=== PATIENT | female | born 1990 | race Caucasian/White ===

== ENCOUNTER 2020-02-21 15:30 | Outpatient (CLI) | payer OTHER, SELFPAY ==
[2016-08-16 22:44] VITALS: BMI 24.1
[2020-02-21 15:58] VITALS: BP 120/83; PULSE 83; TEMP 36.7
[2020-02-21 16:04] VITALS: BP 120/83; PULSE 83
[2020-02-21 16:13] VITALS: BMI 26.4
--- NOTE | 2020-02-23 09:00 | OB.TRI.NOTE ---
History of Present Illness Date of Service: 02/21/20 Was patient seen by the physician?: No Reason For Visit: NST Date of Service: 02/21/20 Final MIRTA: 05/08/20 Final MIRTA Source: US <20 weeks Gestational age: 29 Weeks and 2 Days History of Present Illness: 29-year-old female who was seen in the office on 02/21/2020 complaining of some contractions. She was found to be closed in the office. She was sent to labor and delivery for monitoring, NST and evaluation. She denied any vaginal bleeding or leaking of fluid. Allergies No Known Allergies Allergy (Verified 08/07/16 18:31) Physical Exam Vitals: Vital Signs Temp Pulse BP 98.1 F 83 120/83 H 02/21/20 15:58 02/21/20 16:04 02/21/20 16:04 NST - FHR Rate Baby A Baseline: 140 Variability:: Moderate Accelerations:: 10 x 10 Decelerations:: None NST Reactive:: Appropriate for gestational age, Non-Reactive FHR Category:: Category I Uterine Activity:: irritability - FHR Rate Baby B Baseline: 135 Variability:: Moderate Accelerations:: 10 x 10 Decelerations:: None NST Reactive:: Yes, Non-Reactive FHR Category:: Category I Uterine Activity:: irritability
== END 2020-02-21 17:15 | disposition home or self-care (01) ==
LOC: WPOUT 15:55 → WP 15:57
PROVIDERS: Referring Provider Obstetrics & Gynecology; Visit Provider Obstetrics & Gynecology
DX: O30.003 Twin pregnancy, unspecified number of placenta and unspecified number of amniotic sacs, third trimester (principal); Z3A.29 29 weeks gestation of pregnancy
CPT/HCPCS: 59025; 59050; 99218; G0378

== ENCOUNTER 2020-03-07 17:54 | Observation (INO) | payer OTHER, SELFPAY ==
[2020-03-07] VITALS (9 sets, daily range): BP systolic 117–144; BP diastolic 58–99; PULSE 68–93; TEMP 36.4–36.8; O2SAT 98; BMI 26.9
[2020-03-07] MEDS: Betamethasone/Betamethasone 30 MG/5 ML Vial 12 MG IM (15:21)
[2020-03-07 15:53] LABS: Hematocrit 34.5 % (37-47); Hemoglobin 11.7 g/dL (12.0-15.0); Mean Corp Hgb Conc 33.9 g/dL (32-36); Mean Corpuscular Hgb 31.4 pg (27.0-32.0); Mean Corpuscular Volume 92.5 fL (81-99); Mean Platelet Vol. 11.4 fl (6.2-12.0); Platelet Count 154 K/mm3 (150-450); RBC Distribution Width CV 12.9 % (11.6-14.6); RBC Distribution Width SD 43.1 fl (35.1-43.9); Red Blood Count 3.73 M/mm3 (4.2-5.4); White Blood Count 9.4 K/mm3 (4.4-11.0)
[2020-03-07 16:05] LABS: Protein, Urine (Random) 16.3 mg/dL (<11.9); Protein:Creat Ratio 291 mg/g CRE (0-200)
[2020-03-07 16:06] LABS: AST(SGOT) 23 U/L (15-37); Alanine Aminotransfer ALT/SGPT 13 U/L (13-56); Creatinine, Serum 0.55 mg/dL (0.55-1.02); EST Glomerular Filtration Rate 139 mL/min (>60); Est Glom Filt Rate - Afr Amer 168 mL/min (>60); Estimated Creatinine Clearance 135.81 ml/min; Uric Acid 4.2 mg/dL (2.6-6.0)
[2020-03-07 16:15] LABS: Prothrombin Time (Protime)PT. 13.1 SECONDS (11.7-14.9)
[2020-03-07 16:16] LABS: Partial Thromboplast Time 26.2 Seconds (24.1-36.2)
[2020-03-07] MEDS: Labetalol 100 MG Tablet PO ×2 (16:58→22:11)
--- NOTE | 2020-03-07 17:16 | PCM.HP.OB ---
History Date of Admission: 03/07/20 Final MIRTA: 05/08/20 Final MIRTA Source: US <20 weeks Gestational age: 31 Weeks and 1 Days History of this : This is a 29 year-old, = 2 para 0-1-0-1 presents at 31-1/7 weeks gestation with complaints of a mild headache and increased blood pressure today. She states she woke up this morning and just did not feel well and had emesis x1. She had had nausea and vomiting recently in the but she did earlier. Then she states she had a bright spot in her vision that lasted 45 minutes. She states she would have felt uncomfortable to drive during this time. She then had a mild headache in the back of her head that she rated as a 2-3 out of 10 when she was in the office. She denies any epigastric pain. She denies any vaginal bleeding or leaking of fluid. She is had good movements. Jeane has been complicated to date by history of a previous section and she has chorionic diamniotic twin gestation Medical history is significant for mild asthma, migraines with aura, allergic rhinitis, preeclampsia with a previous , history of depression Allergies No Known Allergies Allergy (Verified 03/07/20 15:18) Home Medications: Home Medications Albuterol Inhaler 1 puff PRN PRN 08/07/16 Aspirin [Aspirin, Baby] 81 mg PO DAILY@0800 02/21/20 Ferrous Sulfate [Iron] 325 mg PO DAILY 02/21/20 Vits [Prenatabs FA] 1 tab PO DAILY 02/21/20 Sertraline HCl [Zoloft] 50 mg PO DAILY 02/21/20 Smoking Status: Never smoker NST - FHR Rate Baby A Baseline: 135 Variability:: Moderate Accelerations:: 15 x 15 Decelerations:: None NST Reactive:: Yes FHR Category:: Category I Uterine Activity:: irritability - FHR Rate Baby B Baseline: 125 Variability:: Moderate Accelerations:: 15 x 15 Decelerations:: None NST Reactive:: Yes FHR Category:: Category I Uterine Activity:: irritability History Past Pregnancies: Past Pregnancies Delivery Date Name GA/ Weeks Outcome Route Wt Infant Sex Labor Length Anesthesia Delivery Location Provider FOB Expected Infant Delivery Method: Scheduled Section Review of Systems Constitutional: Denies: Anorexia, Chills, Fever Eyes: Reports: Blurred vision - earlier, not now. Denies: Double vision HEENT: Reports: Head Aches Cardiovascular: Reports: Chest Pain, Edema Respiratory: Denies: Cough, Shortness of Breath Gastrointestinal: Reports: Nausea, Vomiting. Denies: Diarrhea Genitourinary: Denies: Dysuria Skin: Denies: Rash Neurological: Denies: Blurred vision, Double vision, Change in Speech, Slurred speech Hematologic/ Lymphatic: Denies: Anemia, Easy Bruising, Easy Bleeding Physical Exam Vitals: Vital Signs Temp Pulse BP 97.6 F L 70 132/85 H 03/07/20 15:58 03/07/20 16:23 03/07/20 16:23 General: Alert, Cooperative, No apparent distress Cardiovascular: Regular rate Lungs: Normal air movement Abdomen: Soft, Non-Distended, Gravid, Appropriate for Gestational Age Extremities:: No edema - 1+, Deep tendon reflexes - 3+ Neurological: Cranial nerves II-XII grossly intact, Neuro grossly intact. Negative for: Slurred Speech Assessment/Plan All Active Problems Severe pre-eclampsia (Acute) Severe pre-eclampsia (Acute) This is a 29 year-old, @ 31 1/7 weeks w/ di/di twins, gest HTN, r/o preeclampsia Or without evidence of preeclampsia. Headache is mild. Will treat with Tylenol as needed. Observe overnight and repeat labs in the morning. Labetalol 100 mg p.o. twice daily and monitor closely. NST every shift. NSTs were both reactive today. 3 previous section, last ultrasound baby A was breech. If premature delivery is indicated would recommend repeat section. Will transfer to tertiary care center if able and delivery is indicted or likely. Betamethasone section in anticipation of possible delivery was given. Will repeat in 24 hours.
[2020-03-07] MEDS: Acetaminophen 500 MG Tablet 1000 MG PO (22:21)
[2020-03-08 02:44] VITALS: PULSE 81; O2SAT 98
[2020-03-08 02:45] VITALS: TEMP 36.4
[2020-03-08 02:46] VITALS: BP 113/62; PULSE 82
[2020-03-08 04:36] VITALS: BP 115/63; PULSE 107
[2020-03-08 04:48] LABS: Hematocrit 31.3 % (37-47); Hemoglobin 10.7 g/dL (12.0-15.0); Mean Corp Hgb Conc 34.2 g/dL (32-36); Mean Corpuscular Hgb 31.8 pg (27.0-32.0); Mean Corpuscular Volume 92.9 fL (81-99); Mean Platelet Vol. 10.9 fl (6.2-12.0); Platelet Count 143 K/mm3 (150-450); RBC Distribution Width CV 12.8 % (11.6-14.6); RBC Distribution Width SD 42.9 fl (35.1-43.9); Red Blood Count 3.37 M/mm3 (4.2-5.4); White Blood Count 8.8 K/mm3 (4.4-11.0)
[2020-03-08 04:56] LABS: International Normalized Ratio 1.1; Partial Thromboplast Time 25.3 Seconds (24.1-36.2); Prothrombin Time (Protime)PT. 13.7 SECONDS (11.7-14.9)
[2020-03-08 05:00] LABS: AST(SGOT) 19 U/L (15-37); Alanine Aminotransfer ALT/SGPT 14 U/L (13-56); Creatinine, Serum 0.55 mg/dL (0.55-1.02); EST Glomerular Filtration Rate 139 mL/min (>60); Est Glom Filt Rate - Afr Amer 168 mL/min (>60); Estimated Creatinine Clearance 135.81 ml/min; Uric Acid 4.4 mg/dL (2.6-6.0)
[2020-03-08 08:18] VITALS: BP 116/71; PULSE 82
[2020-03-08 08:19] VITALS: PULSE 88; TEMP 36.7; O2SAT 100
--- NOTE | 2020-03-08 08:59 | PCM.PN.OB ---
Subjective: Doing well per patient and nursing staff. Denies any chest pain, shortness of breath, vaginal bleeding, leakage of fluid or dysuria. No RUQ abdominal pain. Mild headache overnight rating 3/10, took Tylenol and resolved. Denies any scotoma. No complaints. - Physical Exam Vitals/I&O's: Vital Signs Temp Pulse BP Pulse Ox 98.1 F 88 116/71 100 03/08/20 08:19 03/08/20 08:19 03/08/20 08:18 03/08/20 08:19 Weight: 162 lb Body Mass Index (BMI) 26.9 General: Alert, Oriented x3, Cooperative HEENT: Atraumatic, Normocephalic Neck: Trachea Midline Lungs: Clear to auscultation, Normal air movement, No rhonchi, No wheeze Cardiovascular: Regular rate, Regular Rhythm, No murmurs Abdomen: Bowel Sounds Present, Gravid Extremities: No edema Neurological: Deep Tendon Reflexes 2+/4 and Symmetrical, - - No clonus Psych/Mental Status: Normal Affect, Appropriate Laboratory Results 03/07/20 15:35: WBC 9.4, RBC 3.73 L, Hgb 11.7 L, Hct 34.5 L, MCV 92.5, MCH 31.4, MCHC 33.9, RDW Std Deviation 43.1, RDW Coeff of Dana 12.9, Plt Count 154, MPV 11.4 03/07/20 15:35: PT 13.1, INR 1.0, APTT 26.2 03/07/20 15:35: Creatinine 0.55, Estim Creat Clear Calc 135.81, Est GFR (MDRD) Af Amer 168, Est GFR (MDRD) Non-Af 139, Uric Acid 4.2, AST 23, ALT 13 03/07/20 15:35: U Random Total Protein 16.3 H, Urine Creatinine 56.10, Protein/Creatinin Ratio 291 H 03/08/20 04:40: WBC 8.8, RBC 3.37 L, Hgb 10.7 L, Hct 31.3 L, MCV 92.9, MCH 31.8, MCHC 34.2, RDW Std Deviation 42.9, RDW Coeff of Dana 12.8, Plt Count 143 L, MPV 10.9 03/08/20 04:40: PT 13.7, INR 1.1, APTT 25.3 03/08/20 04:40: Creatinine 0.55, Estim Creat Clear Calc 135.81, Est GFR (MDRD) Af Amer 168, Est GFR (MDRD) Non-Af 139, Uric Acid 4.4, AST 19, ALT 14 Current Medications Labetalol HCl (Trandate) 100 mg PO BID CARMEN Last Admin: 03/07/20 22:11 Dose: 100 mg Documented by: Medical Necessity - Tobacco Use Smoking Status: Never smoker Assessment/Plan All Active Problems Severe pre-eclampsia (Acute) Severe pre-eclampsia (Acute) A:Gestational HTN P: 1) BP stable overnight, will continue Labetalol 100mg PO BID. 2) Labs normal. P/C ration 291, 24hr urine will be completed around 1500 today. 3) Second dose of Celestone around 1500 today 4) Follow up in office tomorrow. Reviewed ongoing surveillance. Preeclampsia signs reviewed and when to call. 5) At this time Gestational HTN pending 24 hr urine. 6) Discharge home
--- NOTE | 2020-03-08 09:05 | DCINST_ITS ---
You will use the following diet at home:: Regular Discharge Activity: Return to Normal Activity Weight Bearing Status: Full weight bearing Allergies/Adverse Reactions: Allergies No Known Allergies Allergy (Verified 03/07/20 15:18) Medications to take at Discharge Albuterol Inhaler 1 puff PRN PRN 08/07/16 Aspirin [Aspirin, Baby] 81 mg PO DAILY@0800 02/21/20 Ferrous Sulfate [Iron] 325 mg PO DAILY 02/21/20 Vits [Prenatabs FA] 1 tab PO DAILY 02/21/20 Sertraline HCl [Zoloft] 50 mg PO DAILY 02/21/20 Primary Care Physician: Care Physician,No Primary [Primary Care Provider] - Test Results: Test results from this visit will be discussed in further detail at your follow- up appointment, if applicable.
[2020-03-08 18:19] LABS: 24HR. Urine Creatinine 1.03 g/24 HR (0.70-1.90)
[2020-03-10 11:57] LABS: 24 Hour Urine Protein 241.4 mg/24HR (<150 MG/24HR); 24HR. UA Prot. Total Volume 2775 mL; Urine Protein (24 Hour) 8.7 mg/dL (<11.9)
== END 2020-03-08 09:37 | disposition home or self-care (01) ==
LOC: WPOUT 03-08 09:47 → WP 03-08 09:47
PROVIDERS: Admitting Provider Obstetrics & Gynecology; Referring Provider Obstetrics & Gynecology; Visit Provider Obstetrics & Gynecology
DX: O13.3 Gestational [pregnancy-induced] hypertension without significant proteinuria, third trimester (principal); Z3A.31 31 weeks gestation of pregnancy; O30.043 Twin pregnancy, dichorionic/diamniotic, third trimester; O34.219 Maternal care for unspecified type scar from previous cesarean delivery; O99.343 Other mental disorders complicating pregnancy, third trimester; F32.9 Major depressive disorder, single episode, unspecified; O26.893 Other specified pregnancy related conditions, third trimester; J45.909 Unspecified asthma, uncomplicated
CPT/HCPCS: 36415; 59050; 81050; 82565; 82570; 84156; 84450; 84460; 84550; 85027; 85610; 85730; 96372; 99218; G0378; J0702

== ENCOUNTER 2020-03-08 15:20 | Outpatient (CLI) | payer OTHER, SELFPAY ==
[2020-03-07 15:19] VITALS: BMI 26.9
[2020-03-08 15:37] VITALS: BMI 26.9
[2020-03-08] MEDS: Betamethasone/Betamethasone 30 MG/5 ML Vial 12 MG IM (15:55)
== END 2020-03-08 16:00 | disposition home or self-care (01) ==
LOC: WPOUT 15:28 → WP 15:29
PROVIDERS: Referring Provider Obstetrics & Gynecology; Visit Provider Obstetrics & Gynecology
DX: O13.3 Gestational [pregnancy-induced] hypertension without significant proteinuria, third trimester (principal); O30.043 Twin pregnancy, dichorionic/diamniotic, third trimester; O34.219 Maternal care for unspecified type scar from previous cesarean delivery; O99.343 Other mental disorders complicating pregnancy, third trimester; F32.9 Major depressive disorder, single episode, unspecified; O26.893 Other specified pregnancy related conditions, third trimester; J45.909 Unspecified asthma, uncomplicated; Z3A.31 31 weeks gestation of pregnancy
CPT/HCPCS: 96372; 99218; G0378; J0702

== ENCOUNTER 2020-03-31 12:10 | Inpatient (IN) | payer OTHER, SELFPAY ==
[2020-03-31] VITALS (75 sets, daily range): BP systolic 123–159; BP diastolic 68–106; PULSE 68–104; RESP 14–16; TEMP 36.2–37.3; O2SAT 90–100; BMI 27.3
[2020-03-31] MEDS: Betamethasone/Betamethasone 30 MG/5 ML Vial 12 MG IM (11:23)
[2020-03-31 11:42] LABS: Hemoglobin 12.2 g/dL (12.0-15.0); Mean Corp Hgb Conc 33.9 g/dL (32-36); Mean Corpuscular Hgb 31.4 pg (27.0-32.0); Mean Corpuscular Volume 92.5 fL (81-99); Mean Platelet Vol. 12.1 fl (6.2-12.0); Platelet Count 139 K/mm3 (150-450); RBC Distribution Width CV 12.6 % (11.6-14.6); RBC Distribution Width SD 42.6 fl (35.1-43.9); Red Blood Count 3.89 M/mm3 (4.2-5.4); White Blood Count 7.6 K/mm3 (4.4-11.0)
[2020-03-31 11:51] LABS: International Normalized Ratio 1.1; Prothrombin Time (Protime)PT. 13.2 SECONDS (11.7-14.9)
[2020-03-31 11:52] LABS: Partial Thromboplast Time 31.6 Seconds (24.1-36.2)
[2020-03-31 12:02] LABS: AST(SGOT) 21 U/L (15-37); Alanine Aminotransfer ALT/SGPT 14 U/L (13-56); Creatinine, Serum 0.77 mg/dL (0.55-1.02); EST Glomerular Filtration Rate 93 mL/min (>60); Est Glom Filt Rate - Afr Amer 113 mL/min (>60); Estimated Creatinine Clearance 100.92 ml/min; Uric Acid 5.5 mg/dL (2.6-6.0)
[2020-03-31 12:07] LABS: Protein, Urine (Random) 10.7 mg/dL (<11.9); Protein:Creat Ratio 393 mg/g CRE (0-200)
[2020-03-31] MEDS: Acetaminophen 500 MG Tablet 1000 MG PO ×2 (14:14→20:16)
[2020-03-31] MEDS: Lactated Ringers 1,000 ML 999 ML IV (14:58)
--- NOTE | 2020-03-31 15:43 | HP.PCM_ITS ---
History and Physical Date of Admission: 03/31/20 HPI: The patient is a 29 year old female presenting for pre-operative visit. She is scheduled for?, for?breech, 34 4/7 week twins, preeclampsia with severe features on?March 31, 2020. ??Procedure discussed along with risks, benefits and complications. ?Other alternatives discussed for management. Consent form signed??Yes.? PAST MEDICAL HISTORY PAST MEDICAL HISTORY Diagnosis Date ? Asthma ? ? Depression ? ? Infertility, female ? ? Migraine with aura ? ? depression ? ? Pre-eclampsia ? ? Seasonal allergies ? ? ? PAST SURGICAL HISTORY PAST SURGICAL HISTORY Procedure Laterality Date ? DELIVERY ONLY N/A 08/08/2016 ? ? CURRENT MEDICATIONS Current Outpatient Medications Medication Sig Dispense Refill ? ondansetron (ZOFRAN) 4 mg tablet Take 1 tablet by mouth every 8 hours as needed for Nausea/Vomiting. 30 tablet 0 ? famotidine (PEPCID) 20 mg tablet Take 1 tablet by mouth twice daily. 60 tablet 1 ? labetalol (TRANDATE) 100 mg tablet Take 100 mg by mouth twice daily. ? ? ? sertraline (ZOLOFT) 50 mg tablet TAKE ONE AND ONE-HALF TABLETS ONCE DAILY 45 tablet 11 ? aspirin, enteric coated (ECOTRIN LOW STRENGTH) 81 mg EC tablet Take 1 tablet by mouth once daily. ? ? ? Vmaqzsap-Jb-Cyd-Fe-FA ( VITAMIN) tab Take 1 tablet by mouth. ? ? ? albuterol HFA (VENTOLIN HFA) 90 mcg/actuation inhaler Inhale 2 Puffs as instructed every 4 hours as needed for Wheezing/Shortness of Breath. 1 Inhaler 2 ? budesonide-formoterol (SYMBICORT) 80-4.5 mcg/actuation inhaler Inhale 2 Puffs as instructed twice daily. 1 Inhaler 5 ? fluticasone (FLONASE) 50 mcg/actuation nasal spray Use 2 Sprays in each nostril once daily. 1 Bottle 11 ? No current facility-administered medications for this visit.? ? ALLERGIES:?Patient has no known allergies. ? PERSONAL HISTORY:? SOCIAL HISTORY Social History ? Tobacco Use ? Smoking status: Never Smoker ? Smokeless tobacco: Never Used Substance Use Topics ? Alcohol use: Not Currently ? ? Alcohol/week: 2.5 standard drinks ? ? Types: 1 Glasses of Wine (5oz) per week ? ? Comment: rarely ? Drug use: No ? FAMILY HISTORY:? FAMILY HISTORY FAMILY HISTORY Problem Relation Age of Onset ? Arthritis Mother ?RA ? Hypertension Father ? ? Thyroid Sister ? ? No Known Problems Maternal Grandmother ? ? Cancer Paternal Grandmother ?renal, brain ? No Known Problems Paternal Grandfather ? ? Asthma Sister ? ? No Known Problems Daughter ? ? REVIEW OF SYMPTOMS: GENERAL: denies fevers or chills ENDOCRINOLOGY: has not been on steroids Cardiology : denies palpitations or chest pain Respiratory: denies SOB or cough Hematology: denies history of prolonged bleeding or easy bruising or VTE Allergy: Denies history of personal or family history of allergy to anesthesia ? ? PHYSICAL EXAMINATION: ? VITALS:?Blood pressure 141/101, weight 163 lb (73.9 kg), last menstrual period 08/02/2019. ? GENERAL:??The patient is well nourished, well hydrated in no acute distress. ?, The patient is oriented to time, place, and person. Neuro- some nystagmus, otherwise growssly normal neuro exam NECK:?Supple. No lynphadenopathy, normal thyroid, no thyromegaly. LUNGS:?Clear to auscultation bilaterally. no wheezes, rhonchi or rales HEART:?Regular rate and rhythm, Normal heart sounds and No murmurs or gallops abd: soft, nontender, gravid, approp. for twin gestation ext- 4+DTRs, 3 beats of clonus ? IMPRESSION:?29-year-old 2 para 0101 at 34-4/7 weeks gestation with dichorionic diamniotic twin gestation, breech presentation of fetus A, and preeclampsia with severe features ? PLAN:???The risks/benefits/alternatives and personal involved for the planned?c- section?were reviewed with the patient. Her questions were answered to her satisfaction and she desires to proceed. ?Consent was signed. ?I reviewed with her postop instructions and expectations. ? ? I have reviewed and updated past medical and surgical history, medications and allergies?
[2020-03-31] MEDS: Sodium Citrate/Citric Acid 30 ML UDC PO (16:00)
[2020-03-31] MEDS: Lactated Ringers 1,000 ML 150 ML IV (16:00)
[2020-03-31] MEDS: Cefazolin 2 GM in 0.9% Normal Saline 100 ML IV (16:15)
--- NOTE | 2020-03-31 17:17 | OP.PCM_ITS ---
Delivery Classification: Scheduled Final MIRTA: 05/08/20 Final MIRTA Source: US <20 weeks Gestational age: 34 Weeks and 4 Days veterinary technologist: Pamela Wallace Type of Anesthesia:: Spinal Special Medications: duramorph Implants Used: none Date of Procedure: 03/31/20 Pre-Operative Diagnosis: Dichorionic diamniotic twin gestation, breech presentation of twin A and B, high risk multigravida, previous section, preeclampsia with severe features Post-Operative Diagnosis: Same Description of Procedure: The patient was taken to the operating room. She was prepped and draped in the dorsal supine position with a leftward tilt. A Pfannenstiel skin incision was made approximately 2 cm above the symphysis pubis and carried through to underlying layer fascia with the scalpel. Her previous scar was undermined and removed. The fascia was incised incised in the midline and extended laterally with the Cornejo scissors. The fascia was dissected off the rectus muscles with blunt and sharp dissection. The rectus muscles were in the midline and the peritoneum was entered bluntly. The peritoneal incision was stretched and the bladder blade was placed. The uterine incision was made in a low transverse fashion with the scalpel and extended superiorly and inferiorly with blunt dissection. The amniotic membranes were ruptured bluntly and lightly meconium amniotic fluid returned. Baby A was complete breech and the buttocks were brought out and the leg swept out. The baby was then brought out to the shoulders and the arms were swept out easily and the head delivered easily. There was a loose nuchal cord x1 and the head was delivered through this easily. The infant was stimulated, and after approximately 30 seconds the cord was clamped and cut. The was vigorous and handed off to the waiting nursing staff. At this point baby B was palpated and found to be footling breech. Both feet were grasped and the amniotic membranes were ruptured for clear fluid. The infant was brought out to the buttocks and turned back up. The remainder the baby delivered easily, and the shoulders were swept out and the head delivered very easily without any significant traction. There was a loose nuchal cord and the baby was delivered through this easily. Cord clamping was slightly delayed as the infant was stimulated the cord was clamped and cut as the was stimulated. Cord clamping was delayed. The was handed off to the waiting nursing staff. The placenta was delivered with fundal massage and gentle traction in the standard fashion. The uterus was exteriorized and cleared of all clots and debris. The cervix was dilated with a ring forcep. The uterine incision was closed with #1 Vicryl in a running locked fashion. A single [id number] suture was needed to the right of the midline to obtain hemostasis of a sinus. The incision was examined and was found to be hemostatic. The uterus was placed back into the peritoneal cavity and hemostasis was again confirmed. The rectus muscles were examined and any bleeding was Bovie cauterized. The parietal peritoneum and rectus muscles were closed en bloc with an 0 Vicryl running suture. The surgical teams outer gloves were then changed. The rectus fascia was examined and any bleeding was Bovie cauterized and the rectus fascia was closed with 1 Vicryl suture in a running standard fashion. The subcutaneous tissue was examining and any bleeding was Bovie cauterized. The subcutaneous tissue was reapproximated with 3-0 Vicryl suture. The skin was closed in a subcuticular fashion Monocryl suture. I performed the entire procedure with assistance. All sponge, lap, and needle counts were correct. The patient was taken to her room for recovery in a stable condition. Start time 1646 Stop time 171 Baby A delivery time 1650 baby B delivery time 1652 Amniotic Membrane Rupture Type: Artificial Amniotic Fluid Description: Lightly stained meconium Placenta Disposition: Sent to Pathology Drain: John to straight drain Fluids Replaced: 1000 ml LR Cord Entanglement: Around neck x 1, loose Nuchal Cord Compression: Without compression Cord Vessel Description: 3 Vessels Esitmated Blood Loss (ml): 800 ml Infant Gender: Female - Yi Delayed cord clamping: Yes Antibiotic Given: Ancef 2 grams IV x1 - Admit VTE Documentation VTE Present on Admission: No VTE Mechan Device Prophylaxis: SCD's VTE Pharm Prophylaxis ordered?: Yes Baby B - Information Amniotic Membrane Rupture Type: Artificial Presentation: Footling Breech - Operative Information Cord Entanglement: Around neck x 1, loose Cord Vessel Description: 3 Vessels B gender: Male - Giuliano
[2020-03-31] MEDS: Oxytocin 30 units/NS 500 ml 30 UNITS/500 ML IV.SOLN 167 UNITS IV (17:30)
[2020-03-31] MEDS: Magnesium Sulfate 4gm/100mL 4 GM/100 ML IV.SOLN. IV (17:40)
[2020-03-31] MEDS: Magnesium Sulfate 20 GM/500 ML BAG IV (18:01)
--- NOTE | 2020-03-31 19:54 | NURSING ---
Pt has indwelling urinary catheter
[2020-03-31] MEDS: Lactated Ringers 1,000 ML 50 ML IV (21:20)
--- NOTE | 2020-03-31 22:16 | NURSING ---
Pumping explained and initiated with Mother at 22:00. Mother educated to pump both breasts for 20 minutes every 3 hrs around the clock. Encouraged massage and hand expression as well. Mother hand expressed Colostrum onto swabs, and swabs labeled & taken to SCN
[2020-03-31] MEDS: Ketorolac 30 MG/ML Syringe IV (22:46)
[2020-03-31] MEDS: Labetalol 100 MG Tablet PO (22:46)
--- NOTE | 2020-03-31 22:50 | NURSING ---
Pt ambulating from bed to wheelchair to visit infants in special care nursery. Pt tolerated well. RN at bedside continuously at this time.
[2020-04-01] VITALS (34 sets, daily range): BP systolic 103–142; BP diastolic 57–86; PULSE 67–98; RESP 12–18; TEMP 36.2–37.1; O2SAT 95–100
[2020-04-01] MEDS: 0.9% Saline Lock 10 ML Syringe IV ×3 (00:59→16:59)
[2020-04-01] MEDS: Ondansetron 4 MG/2 ML Vial IV (00:59)
[2020-04-01] MEDS: Acetaminophen 500 MG Tablet 1000 MG PO ×4 (02:07→20:19)
[2020-04-01] MEDS: Magnesium Sulfate 20 GM/500 ML BAG IV ×2 (03:28→14:51)
[2020-04-01] MEDS: Lactated Ringers 1,000 ML 50 ML IV (03:28)
[2020-04-01] MEDS: Ketorolac 30 MG/ML Syringe IV ×3 (04:39→16:58)
[2020-04-01 04:57] LABS: Hematocrit 32.4 % (37-47); Hemoglobin 10.6 g/dL (12.0-15.0); Mean Corp Hgb Conc 32.7 g/dL (32-36); Mean Corpuscular Hgb 31.3 pg (27.0-32.0); Mean Corpuscular Volume 95.6 fL (81-99); Mean Platelet Vol. 11.7 fl (6.2-12.0); Platelet Count 133 K/mm3 (150-450); RBC Distribution Width CV 12.6 % (11.6-14.6); RBC Distribution Width SD 43.7 fl (35.1-43.9); Red Blood Count 3.39 M/mm3 (4.2-5.4)
[2020-04-01] MEDS: Enoxaparin 40 MG/0.4 ML Syringe SC ×2 (05:42→10:50)
[2020-04-01] MEDS: Labetalol 100 MG Tablet PO ×2 (10:49→21:43)
[2020-04-01] MEDS: Senna/Docusate Sodium 1 Tablet PO (10:49)
[2020-04-01] MEDS: Sertraline 50 MG Tablet PO (10:50)
--- NOTE | 2020-04-01 11:27 | PCM.PN.OB ---
Subjective: Patient seen in [facility]. Skin to skin with daughter. Denies any headaches, vision changes or epigastric pain. Ambulating and passing flatus. Pumping every 3 hours. Rates pain 08/09 - Physical Exam Vitals/I&O's: Vital Signs Temp Pulse Resp BP Pulse Ox 98.1 F 83 15 129/78 H 98 04/01/20 07:15 04/01/20 10:35 04/01/20 10:40 04/01/20 10:35 04/01/20 10:40 Oxygen Delivery Method Room Air Weight: 169 lb 2 oz Body Mass Index (BMI) 27.3 Intake and Output for Last 24 Hours 03/30/20 03/31/20 04/01/20 23:59 23:59 23:59 Intake Total 3210.84 / 3210.84 2457.65 / 2457.65 Output Total 2700 / 2700 3375 / 3375 Balance 510.84 / 510.84 -917.35 / -917.35 General: Alert, Oriented x3 HEENT: Atraumatic Lungs: Normal air movement Cardiovascular: Regular rate Abdomen: Soft, Non Tender, Passing Flatus Extremities: Capillary Refill Less than 3 Seconds, No Calf Tenderness Skin: No rashes Neurological: Cranial nerves II-XII grossly intact Psych/Mental Status: Normal Affect, Appropriate Laboratory Results 03/31/20 11:00: Blood Type O POSITIVE, Antibody Screen NEGATIVE 03/31/20 11:04: WBC 7.6, RBC 3.89 L, Hgb 12.2, Hct 36.0 L, MCV 92.5, MCH 31.4, MCHC 33.9, RDW Std Deviation 42.6, RDW Coeff of Dana 12.6, Plt Count 139 L, MPV 12.1 H 03/31/20 11:04: PT 13.2, INR 1.1, APTT 31.6 03/31/20 11:04: Creatinine 0.77, Estim Creat Clear Calc 100.92, Est GFR (MDRD) Af Amer 113, Est GFR (MDRD) Non-Af 93, Uric Acid 5.5, AST 21, ALT 14 03/31/20 11:04: U Random Total Protein 10.7, Urine Creatinine 27.20, Protein/Creatinin Ratio 393 H 04/01/20 04:45: WBC 12.0 H, RBC 3.39 L, Hgb 10.6 L, Hct 32.4 L, MCV 95.6, MCH 31.3, MCHC 32.7, RDW Std Deviation 43.7, RDW Coeff of Dana 12.6, Plt Count 133 L, MPV 11.7 Current Medications Acetaminophen (Tylenol) 1,000 mg PO Q6H COUNTS INCLUDE 234 BEDS AT THE [facility] Last Admin: 04/01/20 08:53 Dose: 1,000 mg Documented by: Bisacodyl (Dulcolax) 10 mg RECTAL UD PRN PRN Reason: If no BM Diphenhydramine HCl (Benadryl) 25 mg PO Q6H PRN PRN PRN Reason: ITCHING Stop: 04/01/20 17:39 Enoxaparin Sodium (Lovenox) 40 mg SC DAILY COUNTS INCLUDE 234 BEDS AT THE [facility] Last Admin: 04/01/20 10:50 Dose: 40 mg Documented by: Hydrocortisone (Hytone) 1 applic TOPICAL TID PRN PRN; Protocol PRN Reason: Discomfort Naloxone HCl 4 mg/ Dextrose 504 mls @ 0 mls/hr IV .Q0M PRN; Protocol PRN Reason: To maintain Resp. rate >10 Lactated Ringer's () 1,000 mls @ 100 mls/hr IV .Q10H COUNTS INCLUDE 234 BEDS AT THE [facility] Last Infusion: 04/01/20 06:43 Dose: 50 mls/hr Documented by: Magnesium Sulfate (20gm/500ml) 20 gm in 500 mls @ 50 mls/hr IV .Q10H COUNTS INCLUDE 234 BEDS AT THE [facility] Last Infusion: 04/01/20 10:35 Dose: 2 gm/hr, 50 mls/hr Documented by: Ketorolac Tromethamine (Toradol (Bkc)) 30 mg IV Q6H CARMEN Stop: 04/01/20 17:01 Last Admin: 04/01/20 10:50 Dose: 30 mg Documented by: Labetalol HCl (Trandate) 100 mg PO BID COUNTS INCLUDE 234 BEDS AT THE [facility] Last Admin: 04/01/20 10:49 Dose: 100 mg Documented by: Methylergonovine Maleate (Methergine) 0.2 mg IM X1 PRN PRN Reason: Uterine Atony Nalbuphine HCl (Nubain) 5 mg IV Q3H PRN PRN PRN Reason: ITCHING Stop: 04/01/20 17:39 Naloxone HCl (Narcan) 0.02 mg IV Q1M PRN PRN Reason: RR< 10 AND PT UNRESPONSIVE Naproxen (Naprosyn) 500 mg PO Q8H COUNTS INCLUDE 234 BEDS AT THE [facility] Ondansetron HCl (Zofran) 4 mg IV Q4H PRN PRN PRN Reason: Nausea Last Admin: 04/01/20 00:59 Dose: 4 mg Documented by: Oxycodone HCl (Oxyir) 5 - 10 mg PO Q4H PRN PRN PRN Reason: Pain Score 4-10/10 Prochlorperazine Edisylate (Compazine Iv) 10 mg IV Q6H PRN PRN PRN Reason: NAUSEA Senna/Docusate Sodium (Senokot-S, Barb-Colace) 0 tablet PO DAILY COUNTS INCLUDE 234 BEDS AT THE [facility] Last Admin: 04/01/20 10:49 Dose: 2 tablet Documented by: Sertraline HCl (Zoloft) 50 mg PO DAILY COUNTS INCLUDE 234 BEDS AT THE [facility] Last Admin: 04/01/20 10:50 Dose: 50 mg Documented by: Simethicone (Mylicon) 80 mg PO HS PRN PRN Reason: Indigestion/stomach pain Sodium Chloride () 5 - 15 ml IV UD PRN PRN Reason: SALINE FLUSH Last Admin: 04/01/20 04:39 Dose: 10 ml Documented by: Medical Necessity - Tobacco Use Smoking Status: Never smoker Assessment/Plan All Active Problems Severe pre-eclampsia (Acute) Severe pre-eclampsia (Acute) POD #1 Repeat C/S Di/Di twins Severe Preeclampsia- Magnesium sulfate running at 2 gm/hr- will continue for 24 hours post Pain control support Continue current plan of care Dr. Magdaleno notified and agrees
--- NOTE | 2020-04-01 18:10 | PN.OBGYN_ITS ---
Subjective: Pain well controlled. Average lochia. No N/V. Reports neonates are doing well in [facility] - Physical Exam Vitals/I&O's: Vital Signs Temp Pulse Resp BP Pulse Ox 98.4 F 76 15 123/77 H 100 04/01/20 16:30 04/01/20 16:53 04/01/20 16:40 04/01/20 16:53 04/01/20 16:40 Oxygen Delivery Method Room Air Weight: 76.714 kg Body Mass Index (BMI) 27.3 Intake and Output for Last 24 Hours 03/30/20 03/31/20 04/01/20 23:59 23:59 23:59 Intake Total 3210.84 / 3210.84 3290.15 / 3290.15 Output Total 2700 / 2700 4175 / 4175 Balance 510.84 / 510.84 -884.85 / -884.85 General: Alert, Cooperative, No apparent distress Laboratory Results 04/01/20 04:45: WBC 12.0 H, RBC 3.39 L, Hgb 10.6 L, Hct 32.4 L, MCV 95.6, MCH 31.3, MCHC 32.7, RDW Std Deviation 43.7, RDW Coeff of Dana 12.6, Plt Count 133 L, MPV 11.7 Current Medications Acetaminophen (Tylenol) 1,000 mg PO Q6H [facility] Last Admin: 04/01/20 14:50 Dose: 1,000 mg Documented by: Bisacodyl (Dulcolax) 10 mg RECTAL UD PRN PRN Reason: If no BM Enoxaparin Sodium (Lovenox) 40 mg SC DAILY [facility] Last Admin: 04/01/20 10:50 Dose: 40 mg Documented by: Hydrocortisone (Hytone) 1 applic TOPICAL TID PRN PRN; Protocol PRN Reason: Discomfort Naloxone HCl 4 mg/ Dextrose 504 mls @ 0 mls/hr IV .Q0M PRN; Protocol PRN Reason: To maintain Resp. rate >10 Lactated Ringer's () 1,000 mls @ 100 mls/hr IV .Q10H [facility] Last Admin: 04/01/20 17:24 Dose: Not Given Documented by: Magnesium Sulfate (20gm/500ml) 20 gm in 500 mls @ 50 mls/hr IV .Q10H [facility] Last Infusion: 04/01/20 16:30 Dose: Infused Documented by: Labetalol HCl (Trandate) 100 mg PO BID [facility] Last Admin: 04/01/20 10:49 Dose: 100 mg Documented by: Methylergonovine Maleate (Methergine) 0.2 mg IM X1 PRN PRN Reason: Uterine Atony Naloxone HCl (Narcan) 0.02 mg IV Q1M PRN PRN Reason: RR< 10 AND PT UNRESPONSIVE Naproxen (Naprosyn) 500 mg PO Q8H [facility] Ondansetron HCl (Zofran) 4 mg IV Q4H PRN PRN PRN Reason: Nausea Last Admin: 04/01/20 00:59 Dose: 4 mg Documented by: Oxycodone HCl (Oxyir) 5 - 10 mg PO Q4H PRN PRN PRN Reason: Pain Score 4-10/10 Prochlorperazine Edisylate (Compazine Iv) 10 mg IV Q6H PRN PRN PRN Reason: NAUSEA Senna/Docusate Sodium (Senokot-S, Barb-Colace) 0 tablet PO DAILY [facility] Last Admin: 04/01/20 10:49 Dose: 2 tablet Documented by: Sertraline HCl (Zoloft) 50 mg PO DAILY [facility] Last Admin: 04/01/20 10:50 Dose: 50 mg Documented by: Simethicone (Mylicon) 80 mg PO PCHS PRN PRN Reason: Indigestion/stomach pain Sodium Chloride () 5 - 15 ml IV UD PRN PRN Reason: SALINE FLUSH Last Admin: 04/01/20 16:59 Dose: 10 ml Documented by: Medical Necessity - Tobacco Use Smoking Status: Never smoker Assessment/Plan All Active Problems Severe pre-eclampsia (Acute) Severe pre-eclampsia (Acute) POD#1 s/p repeat c/s for preeclampsia w/ severe features doing well bp stable, consider hold labetalol tomorrow and see how BPs do infants in [facility], doing well overall
[2020-04-01] MEDS: Naproxen 250 MG Tablet 500 MG PO (23:36)
[2020-04-02] VITALS (10 sets, daily range): BP systolic 138–169; BP diastolic 83–107; PULSE 68–86; RESP 14–16; TEMP 36.2–36.8
[2020-04-02] MEDS: Acetaminophen 500 MG Tablet 1000 MG PO ×4 (02:08→22:01)
[2020-04-02] MEDS: Naproxen 250 MG Tablet 500 MG PO ×3 (06:58→22:51)
[2020-04-02] MEDS: Enoxaparin 40 MG/0.4 ML Syringe SC (10:46)
[2020-04-02] MEDS: Sertraline 50 MG Tablet PO (10:47)
[2020-04-02] MEDS: Senna/Docusate Sodium 1 Tablet PO (10:47)
[2020-04-02] MEDS: Labetalol 100 MG Tablet PO ×2 (10:47→13:49)
[2020-04-02] MEDS: 0.9% Saline Lock 10 ML Syringe IV ×2 (13:49→15:29)
[2020-04-02] MEDS: Ondansetron 4 MG/2 ML Vial IV (15:29)
[2020-04-02] MEDS: Labetalol 200 MG Tablet PO ×2 (17:12→22:02)
[2020-04-02 17:29] LABS: Hematocrit 33.5 % (37-47); Hemoglobin 10.6 g/dL (12.0-15.0); Mean Corp Hgb Conc 31.6 g/dL (32-36); Mean Corpuscular Hgb 30.6 pg (27.0-32.0); Mean Corpuscular Volume 96.8 fL (81-99); Mean Platelet Vol. 11.1 fl (6.2-12.0); Platelet Count 149 K/mm3 (150-450); RBC Distribution Width SD 45.7 fl (35.1-43.9); Red Blood Count 3.46 M/mm3 (4.2-5.4); White Blood Count 10.3 K/mm3 (4.4-11.0)
[2020-04-02 17:39] LABS: Prothrombin Time (Protime)PT. 12.4 SECONDS (11.7-14.9)
[2020-04-02 17:40] LABS: Partial Thromboplast Time 31.8 Seconds (24.1-36.2)
[2020-04-02 17:46] LABS: AST(SGOT) 28 U/L (15-37); Alanine Aminotransfer ALT/SGPT 16 U/L (13-56); Creatinine, Serum 0.74 mg/dL (0.55-1.02); EST Glomerular Filtration Rate 99 mL/min (>60); Est Glom Filt Rate - Afr Amer 120 mL/min (>60); Estimated Creatinine Clearance 105.01 ml/min; Uric Acid 4.5 mg/dL (2.6-6.0)
[2020-04-02 17:47] LABS: ALB/GLOB Ratio 0.6 RATIO (0.9-2.4); AST(SGOT) 28 U/L (15-37); Alanine Aminotransfer ALT/SGPT 16 U/L (13-56); Albumin, Serum 2.2 g/dL (3.2-5.0); Alkaline Phosphatase 172 U/L (45-117); Anion Gap 6 (5-15); BUN 13 mg/dL (7-18); BUN/Creat Ratio 17.5 RATIO (10-20); Calcium,Total 8.2 mg/dL (8.5-10.1); Chloride 111 mmol/L (98-107); Creatinine, Serum 0.74 mg/dL (0.55-1.02); EST Glomerular Filtration Rate 98 mL/min (>60); Est Glom Filt Rate - Afr Amer 118 mL/min (>60); Estimated Creatinine Clearance 105.01 ml/min; Globulin 3.5 g/dL (2.2-4.2); Glucose 81 mg/dL (74-106); Potassium 3.7 mmol/L (3.5-5.1); Protein, Total 5.7 g/dL (6.4-8.2); Sodium Level 143 mmol/L (136-145)
[2020-04-02] MEDS: Mag Hydrox/Al Hydrox/Simeth 30 ML UDC PO (19:01)
--- NOTE | 2020-04-02 19:14 | PN.OBGYN_ITS ---
Subjective: Patient seen at bedside. Denies any headaches, visual changes or right epigastric pain. Just feeling tired. Objective: BP's continue to be elevated at 150's/90's Preeclampsia labs within normal limits - Physical Exam Vitals/I&O's: Vital Signs Temp Pulse Resp BP Pulse Ox 98.2 F 72 16 150/94 H 100 04/02/20 13:55 04/02/20 15:30 04/02/20 15:30 04/02/20 18:27 04/01/20 16:40 Oxygen Delivery Method Room Air Weight: 169 lb 2 oz Body Mass Index (BMI) 27.3 Intake and Output for Last 24 Hours 03/31/20 04/01/20 04/02/20 23:59 23:59 23:59 Intake Total 3210.84 / 3210.84 3290.15 / 3290.15 Output Total 2700 / 2700 4175 / 4175 Balance 510.84 / 510.84 -884.85 / -884.85 General: Alert, Oriented x3 Lungs: Clear to auscultation, Normal air movement Cardiovascular: Regular rate Abdomen: Soft, Passing Flatus Extremities: No Calf Tenderness Neurological: Cranial nerves II-XII grossly intact, Deep Tendon Reflexes 2+/4 and Symmetrical - Reflexes brisk Psych/Mental Status: Normal Affect, Appropriate Laboratory Results 04/02/20 17:10: WBC 10.3, RBC 3.46 L, Hgb 10.6 L, Hct 33.5 L, MCV 96.8, MCH 30.6, MCHC 31.6 L, RDW Std Deviation 45.7 H, RDW Coeff of Dana 13.0, Plt Count 149 L, MPV 11.1 04/02/20 17:10: PT 12.4, INR 1.0, APTT 31.8 04/02/20 17:10: Creatinine 0.74, Estim Creat Clear Calc 105.01, Est GFR (MDRD) Af Amer 120, Est GFR (MDRD) Non-Af 99, Uric Acid 4.5, AST 28, ALT 16 04/02/20 17:10: Fibrinogen Pending 04/02/20 17:10: Sodium 143, Potassium 3.7, Chloride 111 H, Carbon Dioxide 26.0, Anion Gap 6, BUN 13, Creatinine 0.74, Estim Creat Clear Calc 105.01, Est GFR (MDRD) Af Amer 118, Est GFR (MDRD) Non-Af 98, BUN/Creatinine Ratio 17.5, Glucose 81, Calcium 8.2 L, Total Bilirubin 0.30, AST 28, ALT 16, Alkaline Phosphatase 172 H, Total Protein 5.7 L, Albumin 2.2 L, Globulin 3.5, Albumin/Globulin Ratio 0.6 L Current Medications Acetaminophen (Tylenol) 1,000 mg PO Q6H [facility] Al Hydroxide/Mg Hydroxide (Mylanta Ii) 30 ml PO Q6H PRN PRN PRN Reason: dyspepsia Last Admin: 04/02/20 19:01 Dose: 30 ml Documented by: Bisacodyl (Dulcolax) 10 mg RECTAL UD PRN PRN Reason: If no BM Enoxaparin Sodium (Lovenox) 40 mg SC DAILY [facility] Last Admin: 04/02/20 10:46 Dose: 40 mg Documented by: Hydrocortisone (Hytone) 1 applic TOPICAL TID PRN PRN; Protocol PRN Reason: Discomfort Naloxone HCl 4 mg/ Dextrose 504 mls @ 0 mls/hr IV .Q0M PRN; Protocol PRN Reason: To maintain Resp. rate >10 Labetalol HCl (Trandate) 200 mg PO TID [facility] Last Admin: 04/02/20 17:12 Dose: 200 mg Documented by: Methylergonovine Maleate (Methergine) 0.2 mg IM X1 PRN PRN Reason: Uterine Atony Naloxone HCl (Narcan) 0.02 mg IV Q1M PRN PRN Reason: RR< 10 AND PT UNRESPONSIVE Naproxen (Naprosyn) 500 mg PO Q8H [facility] Last Admin: 04/02/20 15:23 Dose: 500 mg Documented by: Ondansetron HCl (Zofran) 4 mg IV Q4H PRN PRN PRN Reason: Nausea Last Admin: 04/02/20 15:29 Dose: 4 mg Documented by: Oxycodone HCl (Oxyir) 5 - 10 mg PO Q4H PRN PRN PRN Reason: Pain Score 4-10/10 Prochlorperazine Edisylate (Compazine Iv) 10 mg IV Q6H PRN PRN PRN Reason: NAUSEA Senna/Docusate Sodium (Senokot-S, Barb-Colace) 0 tablet PO DAILY [facility] Last Admin: 04/02/20 10:47 Dose: 2 tablet Documented by: Sertraline HCl (Zoloft) 50 mg PO DAILY [facility] Last Admin: 04/02/20 10:47 Dose: 50 mg Documented by: Simethicone (Mylicon) 80 mg PO PCHS PRN PRN Reason: Indigestion/stomach pain Sodium Chloride () 5 - 15 ml IV UD PRN PRN Reason: SALINE FLUSH Last Admin: 04/02/20 15:29 Dose: 10 ml Documented by: Medical Necessity - Tobacco Use Smoking Status: Never smoker Assessment/Plan All Active Problems Severe pre-eclampsia (Acute) Severe pre-eclampsia (Acute) POD #2 Repeat C/S Di/Di twins- Preeclampsia Magnesium Sulfate continued for 24 hours after delivery Blood pressures remain elevated at 150's/90's Labetalol increased to 200 mg PO TID Preeclampsia labs drawn and are within normal range Continue present management Dr. Magdaleno notified and involved in plan of care
[2020-04-02 19:38] LABS: Fibrinogen 528 mg/dl (203-444)
[2020-04-03] VITALS (32 sets, daily range): BP systolic 118–182; BP diastolic 60–108; PULSE 60–90; RESP 16–62; TEMP 36.1–36.9; O2SAT 95
[2020-04-03] MEDS: Acetaminophen 500 MG Tablet 1000 MG PO ×2 (03:33→19:38)
[2020-04-03] MEDS: Naproxen 250 MG Tablet 500 MG PO ×2 (06:32→19:39)
[2020-04-03] MEDS: Labetalol 200 MG Tablet PO ×3 (06:32→22:21)
[2020-04-03] MEDS: 0.9% Saline Lock 10 ML Syringe IV ×5 (06:32→16:46)
[2020-04-03] MEDS: Ondansetron 4 MG/2 ML Vial IV ×2 (08:09→16:05)
[2020-04-03] MEDS: Enoxaparin 40 MG/0.4 ML Syringe SC (12:11)
--- NOTE | 2020-04-03 13:56 | PN.OBGYN_ITS ---
Subjective: Sitting up in bed eating lunch. Nausea throughout the morning but feeling better. Passing gas. Pain controlled. Denies headache, visual changes, chest pain, shortness or breath, or leg pain. Lochia normal. Pumping breastmilk every 3 hrs. Doing well emotionally with twins in special care nursery. - Physical Exam Vitals/I&O's: Vital Signs Temp Pulse Resp BP Pulse Ox 97.9 F 60 16 152/101 H 100 04/03/20 12:06 04/03/20 12:06 04/03/20 12:06 04/03/20 12:06 04/01/20 16:40 Oxygen Delivery Method Room Air Weight: 169 lb 2 oz Body Mass Index (BMI) 27.3 Intake and Output for Last 24 Hours 04/01/20 04/02/20 04/03/20 23:59 23:59 23:59 Intake Total 3290.15 / 3290.15 Output Total 4175 / 4175 Balance -884.85 / -884.85 General: Alert, Oriented x3, Cooperative HEENT: Atraumatic, Normocephalic Neck: Trachea Midline Lungs: Clear to auscultation, Normal air movement, No rhonchi, No wheeze Cardiovascular: Regular rate, Regular Rhythm, No murmurs Abdomen: Bowel Sounds Present, Soft - Fundus firm 3 below U. Dressing dry and intact. Extremities: No edema Neurological: Deep Tendon Reflexes 2+/4 and Symmetrical - No clonus. Toñito's negative bilaterally Psych/Mental Status: Normal Affect, Appropriate Laboratory Results 04/02/20 17:10: WBC 10.3, RBC 3.46 L, Hgb 10.6 L, Hct 33.5 L, MCV 96.8, MCH 30.6, MCHC 31.6 L, RDW Std Deviation 45.7 H, RDW Coeff of Dana 13.0, Plt Count 149 L, MPV 11.1 04/02/20 17:10: PT 12.4, INR 1.0, APTT 31.8 04/02/20 17:10: Creatinine 0.74, Estim Creat Clear Calc 105.01, Est GFR (MDRD) Af Amer 120, Est GFR (MDRD) Non-Af 99, Uric Acid 4.5, AST 28, ALT 16 04/02/20 17:10: Fibrinogen 528 H 04/02/20 17:10: Sodium 143, Potassium 3.7, Chloride 111 H, Carbon Dioxide 26.0, Anion Gap 6, BUN 13, Creatinine 0.74, Estim Creat Clear Calc 105.01, Est GFR (MDRD) Af Amer 118, Est GFR (MDRD) Non-Af 98, BUN/Creatinine Ratio 17.5, Glucose 81, Calcium 8.2 L, Total Bilirubin 0.30, AST 28, ALT 16, Alkaline Phosphatase 172 H, Total Protein 5.7 L, Albumin 2.2 L, Globulin 3.5, Albumin/Globulin Ratio 0.6 L Current Medications Acetaminophen (Tylenol) 1,000 mg PO Q6H [facility] Last Admin: 04/03/20 11:30 Dose: Not Given Documented by: Al Hydroxide/Mg Hydroxide (Mylanta Ii) 30 ml PO Q6H PRN PRN PRN Reason: dyspepsia Last Admin: 04/02/20 19:01 Dose: 30 ml Documented by: Bisacodyl (Dulcolax) 10 mg RECTAL UD PRN PRN Reason: If no BM Enoxaparin Sodium (Lovenox) 40 mg SC DAILY [facility] Last Admin: 04/03/20 12:11 Dose: 40 mg Documented by: Hydrocortisone (Hytone) 1 applic TOPICAL TID PRN PRN; Protocol PRN Reason: Discomfort Naloxone HCl 4 mg/ Dextrose 504 mls @ 0 mls/hr IV .Q0M PRN; Protocol PRN Reason: To maintain Resp. rate >10 Labetalol HCl (Trandate) 200 mg PO TID [facility] Last Admin: 04/03/20 06:32 Dose: 200 mg Documented by: Methylergonovine Maleate (Methergine) 0.2 mg IM X1 PRN PRN Reason: Uterine Atony Naloxone HCl (Narcan) 0.02 mg IV Q1M PRN PRN Reason: RR< 10 AND PT UNRESPONSIVE Naproxen (Naprosyn) 500 mg PO Q8H [facility] Last Admin: 04/03/20 06:32 Dose: 500 mg Documented by: Nifedipine (Procardia Xl) 30 mg PO DAILY [facility] Ondansetron HCl (Zofran) 4 mg IV Q4H PRN PRN PRN Reason: Nausea Last Admin: 04/03/20 08:09 Dose: 4 mg Documented by: Oxycodone HCl (Oxyir) 5 - 10 mg PO Q4H PRN PRN PRN Reason: Pain Score 4-10/10 Prochlorperazine Edisylate (Compazine Iv) 10 mg IV Q6H PRN PRN PRN Reason: NAUSEA Senna/Docusate Sodium (Senokot-S, Barb-Colace) 0 tablet PO DAILY [facility] Last Admin: 04/03/20 11:31 Dose: Not Given Documented by: Sertraline HCl (Zoloft) 50 mg PO DAILY [facility] Last Admin: 04/03/20 11:31 Dose: Not Given Documented by: Simethicone (Mylicon) 80 mg PO PCHS PRN PRN Reason: Indigestion/stomach pain Sodium Chloride () 5 - 15 ml IV UD PRN PRN Reason: SALINE FLUSH Last Admin: 04/03/20 08:08 Dose: 10 ml Documented by: Medical Necessity - Tobacco Use Smoking Status: Never smoker Assessment/Plan All Active Problems Severe pre-eclampsia (Acute) Severe pre-eclampsia (Acute) A:POD #3 Primary Section for Di/Di Twins Severe Preeclampsia P: Blood pressures remain elevated, will get repeat blood pressure as trending up. Labetalol increased to 200 mg PO TID previously. Will notify of BP and discuss plan. Continue present management Planning D/C to hotel status tomorrow if BP stable Twins in special car nursery
[2020-04-03] MEDS: NIFEdipine 30 MG Tablet PO (14:01)
[2020-04-03] MEDS: Labetalol (Prefilled) 20 MG/4 ML IV (15:29)
[2020-04-03] MEDS: Labetalol (Prefilled) 20 MG/4 ML 40 MG IV (15:38)
[2020-04-03] MEDS: Scopolamine 1mg/72hr Patch 1 PATCH TD (15:44)
[2020-04-03] MEDS: Labetalol 100 MG/20 ML Vial 80 MG IV (16:05)
[2020-04-03] MEDS: proCHLORPERazine 10 MG/2 ML Vial IV (16:46)
[2020-04-03 16:55] LABS: Absolute Lymphocyte Count 1.81 X10^3/uL (0.83-4.51); Absolute Neutrophil Count 8.9 X10^3/uL (2.0-7.7); Basophil# 0.05 X10^3/uL; Basophil% 0.4 % (0-1); Eosinophil# 0.41 X10^3/uL; Eosinophils% 3.4 % (0-5); Hematocrit 36.8 % (37-47); Lymphocyte # 1.81 X10^3/ul (4.0); Lymphocyte % 14.8 % (19-41); Mean Corp Hgb Conc 32.6 g/dL (32-36); Mean Corpuscular Hgb 30.3 pg (27.0-32.0); Mean Corpuscular Volume 92.9 fL (81-99); Mean Platelet Vol. 10.6 fl (6.2-12.0); Monocyte% 7.4 % (0-10); NRBC Flagged by Analyzer 0 % (0-5); Neutrophil # 8.89 X10^3/uL (2.7-7.7); Neutrophil % 72.9 % (47-70); Platelet Count 194 K/mm3 (150-450); RBC Distribution Width CV 12.6 % (11.6-14.6); RBC Distribution Width SD 43.3 fl (35.1-43.9); Red Blood Count 3.96 M/mm3 (4.2-5.4); White Blood Count 12.2 K/mm3 (4.4-11.0)
[2020-04-03] MEDS: NIFEdipine 10 MG Capsule PO (17:07)
[2020-04-03 17:36] LABS: ALB/GLOB Ratio 0.6 RATIO (0.9-2.4); AST(SGOT) 46 U/L (15-37); Alanine Aminotransfer ALT/SGPT 27 U/L (13-56); Albumin, Serum 2.5 g/dL (3.2-5.0); Alkaline Phosphatase 179 U/L (45-117); Anion Gap 6 (5-15); BUN 10 mg/dL (7-18); BUN/Creat Ratio 14.5 RATIO (10-20); Chloride 106 mmol/L (98-107); Creatinine, Serum 0.69 mg/dL (0.55-1.02); EST Glomerular Filtration Rate 107 mL/min (>60); Est Glom Filt Rate - Afr Amer 129 mL/min (>60); Estimated Creatinine Clearance 112.62 ml/min; Globulin 4.1 g/dL (2.2-4.2); Glucose 77 mg/dL (74-106); Potassium 3.9 mmol/L (3.5-5.1); Protein, Total 6.6 g/dL (6.4-8.2); Sodium Level 139 mmol/L (136-145)
--- NOTE | 2020-04-03 18:03 | PCM.PN.BLA ---
Progress Note At bedside to check on patient. Patient is doing well. Nausea and vomiting has somewhat improved after scopolamine patch was placed. She had a headache several hours ago that has since improved. No vision changes. She has had persistent epigastric pain. She is otherwise doing well and has no complaints. PE: Gen- NAD, well appearing Abd- Soft, ND, +tenderness in epigastric area and RUQ LE- No edema, brisk reflexes A/P: - POD#3 s/p C/S for twins and preeclampsia with severe features. Patient was on Labetalol 200 mg TID with severe range BP's. Procardia 30 mg XR was added, but due to N/V pt did not tolerate the Procardia or second dose of Labetalol today. After she took both the Procardia and Labetalol she had an episode of emesis, followed by persistent severe range BP's. The hypertensive protocol was started. She was given 20 mg, then 40 mg, then 80 mg of IV Labetalol. She was then given 10 mg of PO Procardia. BP's are now normal to mild range. If persistent mild, will give Procardia 30 mg XR followed by scheduled Labetalol tonight. Repeat labs were drawn for epigastric pain and AST was minimally elevated. Ordered for repeat labs in AM. Discussed plan of care with patient and questions answered. STROKE Vital Signs/Narrative: Vital Signs Pulse Resp BP BP 04/03/20 17:42 90 129/81 H 04/03/20 17:30 67 150/98 H 04/03/20 17:03 60 168/60 H 04/03/20 16:55 61 150/101 H 04/03/20 16:45 63 162/99 H 04/03/20 16:35 67 158/104 H 04/03/20 16:25 78 161/107 H 04/03/20 16:15 71 151/105 H 04/03/20 15:56 182/104 H 04/03/20 15:36 64 179/108 H 04/03/20 15:22 62 H 169/101 H 04/03/20 15:07 167/100 H 169/103 H 04/03/20 14:35 154/93 H
[2020-04-03] MEDS: Sertraline 50 MG Tablet PO (19:39)
--- NOTE | 2020-04-03 20:56 | NURSING ---
Call placed to Dr. Paez to update on patient's blood pressures. Plan is to continue current plan of care and give Labetalol as ordered and call if there's any severe range blood pressures. Per Dr. Paez, Procardia may be started in the morning depending on how that patient's blood pressures are throughout the night.
--- NOTE | 2020-04-03 22:04 | NURSING ---
Call placed to Dr. Paez to confirm Labetalol order as previous order was discontinued on MAR. 200 mg TID PO per Dr. Paez, telephone order.
[2020-04-04] VITALS (10 sets, daily range): BP systolic 122–146; BP diastolic 65–96; PULSE 64–85; RESP 16–18; TEMP 36.6–37; O2SAT 95
[2020-04-04] MEDS: 0.9% Saline Lock 10 ML Syringe IV ×4 (02:04→21:34)
[2020-04-04] MEDS: Naproxen 250 MG Tablet 500 MG PO ×3 (04:17→21:29)
[2020-04-04] MEDS: Acetaminophen 500 MG Tablet 1000 MG PO ×4 (04:18→21:29)
[2020-04-04] MEDS: Ondansetron 4 MG/2 ML Vial IV ×2 (04:23→18:35)
[2020-04-04] MEDS: Labetalol 200 MG Tablet PO ×3 (06:00→21:35)
[2020-04-04 06:17] LABS: Hematocrit 37.3 % (37-47); Hemoglobin 11.9 g/dL (12.0-15.0); Mean Corp Hgb Conc 31.9 g/dL (32-36); Mean Corpuscular Hgb 30.7 pg (27.0-32.0); Mean Corpuscular Volume 96.4 fL (81-99); Mean Platelet Vol. 10.8 fl (6.2-12.0); Platelet Count 210 K/mm3 (150-450); RBC Distribution Width CV 12.6 % (11.6-14.6); RBC Distribution Width SD 44.2 fl (35.1-43.9); Red Blood Count 3.87 M/mm3 (4.2-5.4); White Blood Count 11.7 K/mm3 (4.4-11.0)
[2020-04-04 06:46] LABS: ALB/GLOB Ratio 0.6 RATIO (0.9-2.4); AST(SGOT) 50 U/L (15-37); Alanine Aminotransfer ALT/SGPT 35 U/L (13-56); Albumin, Serum 2.5 g/dL (3.2-5.0); Alkaline Phosphatase 169 U/L (45-117); Anion Gap 8 (5-15); BUN 14 mg/dL (7-18); Calcium,Total 8.6 mg/dL (8.5-10.1); Chloride 104 mmol/L (98-107); Creatinine, Serum 0.88 mg/dL (0.55-1.02); EST Glomerular Filtration Rate 81 mL/min (>60); Est Glom Filt Rate - Afr Amer 98 mL/min (>60); Glucose 145 mg/dL (74-106); Potassium 3.6 mmol/L (3.5-5.1); Protein, Total 6.5 g/dL (6.4-8.2); Sodium Level 137 mmol/L (136-145)
--- NOTE | 2020-04-04 08:07 | PCM.PN.OB ---
Subjective: pt seen at bedside, doing well. pt reports good pain control. lochia mild. Voiding and passing flatus. Pt denies VIVAS, visual changes, epigastric pain. - Physical Exam Vitals/I&O's: Vital Signs Temp Pulse Resp BP Pulse Ox 98.6 F 83 16 139/90 H 95 04/04/20 07:59 04/04/20 07:59 04/04/20 07:59 04/04/20 07:59 04/04/20 07:59 Oxygen Delivery Method Room Air Weight: 76.714 kg Body Mass Index (BMI) 27.3 Intake and Output for Last 24 Hours 04/02/20 04/03/20 04/04/20 23:59 23:59 23:59 Output Total 300 / 300 Balance -300 / -300 General: Alert, Oriented x3 Abdomen: Soft, Non-Distended, Passing Flatus, - - no RUQ pain. Fundus firm. Dressing dry and intact. Extremities: No Calf Tenderness Laboratory Results 04/03/20 16:35: WBC 12.2 H, RBC 3.96 L, Hgb 12.0, Hct 36.8 L, MCV 92.9, MCH 30.3, MCHC 32.6, RDW Std Deviation 43.3, RDW Coeff of Dana 12.6, Plt Count 194, MPV 10.6, Immature Gran % (Auto) 1.100 H, Neut % (Auto) 72.9 H, Lymph % (Auto) 14.8 L, [place] % (Auto) 7.4, Eos % (Auto) 3.4, Baso % (Auto) 0.4, Absolute Neuts (auto) 8.9 H, Absolute Lymphs (auto) 1.81, Nucleated RBC % 0 04/03/20 16:35: Sodium 139, Potassium 3.9, Chloride 106, Carbon Dioxide 27.0, Anion Gap 6, BUN 10, Creatinine 0.69, Estim Creat Clear Calc 112.62, Est GFR (MDRD) Af Amer 129, Est GFR (MDRD) Non-Af 107, BUN/Creatinine Ratio 14.5, Glucose 77, Calcium 9.0, Total Bilirubin 0.40, AST 46 H, ALT 27, Alkaline Phosphatase 179 H, Total Protein 6.6, Albumin 2.5 L, Globulin 4.1, Albumin/Globulin Ratio 0.6 L 04/04/20 06:00: WBC 11.7 H, RBC 3.87 L, Hgb 11.9 L, Hct 37.3, MCV 96.4, MCH 30.7, MCHC 31.9 L, RDW Std Deviation 44.2 H, RDW Coeff of Dana 12.6, Plt Count 210, MPV 10.8 04/04/20 06:00: Sodium 137, Potassium 3.6, Chloride 104, Carbon Dioxide 25.0, Anion Gap 8, BUN 14, Creatinine 0.88, Estim Creat Clear Calc 88.30, Est GFR (MDRD) Af Amer 98, Est GFR (MDRD) Non-Af 81, BUN/Creatinine Ratio 16.0, Glucose 145 H, Calcium 8.6, Total Bilirubin 0.50, AST 50 H, ALT 35, Alkaline Phosphatase 169 H, Total Protein 6.5, Albumin 2.5 L, Globulin 4.0, Albumin/Globulin Ratio 0.6 L Current Medications Acetaminophen (Tylenol) 1,000 mg PO Q6H [facility] Last Admin: 04/04/20 04:18 Dose: 1,000 mg Documented by: Al Hydroxide/Mg Hydroxide (Mylanta Ii) 30 ml PO Q6H PRN PRN PRN Reason: dyspepsia Last Admin: 04/02/20 19:01 Dose: 30 ml Documented by: Bisacodyl (Dulcolax) 10 mg RECTAL UD PRN PRN Reason: If no BM Enoxaparin Sodium (Lovenox) 40 mg SC DAILY [facility] Last Admin: 04/03/20 12:11 Dose: 40 mg Documented by: Hydralazine HCl (Apresoline Iv) 10 mg IV X1 PRN PRN Reason: Elevated BP Hydrocortisone (Hytone) 1 applic TOPICAL TID PRN PRN; Protocol PRN Reason: Discomfort Naloxone HCl 4 mg/ Dextrose 504 mls @ 0 mls/hr IV .Q0M PRN; Protocol PRN Reason: To maintain Resp. rate >10 Labetalol HCl (Trandate) 20 mg IV X1 PRN PRN Reason: Elevated BP Labetalol HCl (Trandate) 200 mg PO TID [facility] Last Admin: 04/04/20 06:00 Dose: 200 mg Documented by: Methylergonovine Maleate (Methergine) 0.2 mg IM X1 PRN PRN Reason: Uterine Atony Naloxone HCl (Narcan) 0.02 mg IV Q1M PRN PRN Reason: RR< 10 AND PT UNRESPONSIVE Naproxen (Naprosyn) 500 mg PO Q8H [facility] Last Admin: 04/04/20 04:17 Dose: 500 mg Documented by: Nifedipine (Procardia Xl) 30 mg PO DAILY [facility] Nifedipine (Procardia) 20 mg PO X1 PRN PRN Reason: Elevated BP Nifedipine (Procardia) 20 mg PO X1 PRN PRN Reason: Elevated BP Ondansetron HCl (Zofran) 4 mg IV Q4H PRN PRN PRN Reason: Nausea Last Admin: 04/04/20 04:23 Dose: 4 mg Documented by: Oxycodone HCl (Oxyir) 5 - 10 mg PO Q4H PRN PRN PRN Reason: Pain Score 4-10/10 Prochlorperazine Edisylate (Compazine Iv) 10 mg IV Q6H PRN PRN PRN Reason: NAUSEA Last Admin: 04/03/20 16:46 Dose: 10 mg Documented by: Scopolamine HBr (Transderm-Scop) 1 patch TD Q3D [facility] Last Admin: 04/03/20 15:44 Dose: 1 applicatio Documented by: Senna/Docusate Sodium (Senokot-S, Barb-Colace) 0 tablet PO DAILY [facility] Last Admin: 04/03/20 11:31 Dose: Not Given Documented by: Sertraline HCl (Zoloft) 50 mg PO DAILY [facility] Last Admin: 04/03/20 19:39 Dose: 50 mg Documented by: Simethicone (Mylicon) 80 mg PO PCHS PRN PRN Reason: Indigestion/stomach pain Sodium Chloride () 5 - 15 ml IV UD PRN PRN Reason: SALINE FLUSH Last Admin: 04/04/20 04:23 Dose: 10 ml Documented by: Medical Necessity - Tobacco Use Smoking Status: Never smoker Assessment/Plan All Active Problems Severe pre-eclampsia (Acute) Severe pre-eclampsia (Acute) POD#4 s/p c/s di/di twins, Pre E with severe features. 1) BP- better with Procardia 30XL and Labetalol 200 TID- will continue to monitor BPs today- if remain stable will consider Dc home (hotel) tomorrow on POD#5 2) repeat labs in am- AST slightly elevated today 3) ambulation 4) pain mgmt
[2020-04-04] MEDS: NIFEdipine 30 MG Tablet PO (10:31)
[2020-04-04] MEDS: Enoxaparin 40 MG/0.4 ML Syringe SC (12:38)
--- NOTE | 2020-04-04 20:25 | NURSING ---
Dr. Venegas notified via phone that patient is feeling nauseous and has epigastric pain. DTR brisker than average. Plan is to draw CBC and CMP now, add on amylase and lipase. Call back with results.
[2020-04-04 20:50] LABS: Hematocrit 35.7 % (37-47); Hemoglobin 11.8 g/dL (12.0-15.0); Mean Corp Hgb Conc 33.1 g/dL (32-36); Mean Corpuscular Hgb 30.8 pg (27.0-32.0); Mean Corpuscular Volume 93.2 fL (81-99); Mean Platelet Vol. 10.6 fl (6.2-12.0); Platelet Count 228 K/mm3 (150-450); RBC Distribution Width CV 12.4 % (11.6-14.6); RBC Distribution Width SD 42.4 fl (35.1-43.9); Red Blood Count 3.83 M/mm3 (4.2-5.4); White Blood Count 11.5 K/mm3 (4.4-11.0)
[2020-04-04 21:02] LABS: Amylase 48 U/L (25-115); Lipase 90 U/L (73-393)
[2020-04-04 21:15] LABS: ALB/GLOB Ratio 0.6 RATIO (0.9-2.4); AST(SGOT) 35 U/L (15-37); Alanine Aminotransfer ALT/SGPT 31 U/L (13-56); Albumin, Serum 2.5 g/dL (3.2-5.0); Alkaline Phosphatase 169 U/L (45-117); Anion Gap 7 (5-15); BUN 13 mg/dL (7-18); BUN/Creat Ratio 19.7 RATIO (10-20); Calcium,Total 8.8 mg/dL (8.5-10.1); Chloride 108 mmol/L (98-107); Creatinine, Serum 0.66 mg/dL (0.55-1.02); EST Glomerular Filtration Rate 112 mL/min (>60); Est Glom Filt Rate - Afr Amer 135 mL/min (>60); Estimated Creatinine Clearance 117.74 ml/min; Globulin 4.2 g/dL (2.2-4.2); Glucose 88 mg/dL (74-106); Potassium 3.8 mmol/L (3.5-5.1); Protein, Total 6.7 g/dL (6.4-8.2); Sodium Level 140 mmol/L (136-145)
--- NOTE | 2020-04-04 21:23 | NURSING ---
Call placed to Dr. Venegas to update on lab results. Plan is to continue current plan of care. Call with any severe high blood pressures. No further blood work tonight or in the morning per Dr. Venegas.
[2020-04-04] MEDS: proCHLORPERazine 10 MG/2 ML Vial IV (21:34)
[2020-04-05 01:53] VITALS: BP 122/73; PULSE 66; RESP 16; TEMP 36.6
[2020-04-05] MEDS: Naproxen 250 MG Tablet 500 MG PO (05:16)
[2020-04-05] MEDS: Acetaminophen 500 MG Tablet 1000 MG PO ×2 (05:17→11:40)
[2020-04-05 05:41] VITALS: BP 145/88
[2020-04-05] MEDS: Labetalol 200 MG Tablet PO (05:41)
[2020-04-05 07:45] VITALS: BP 130/76; PULSE 75; RESP 18; TEMP 36.4
--- NOTE | 2020-04-05 08:33 | PCM.PN.OB ---
Subjective: Patient doing well this morning. She feels slightly improved. No headaches, vision changes, chest pain, shortness of breath, leg pain, lightheadedness, dizziness. Pain is well controlled. Occasional nausea and vomiting when she is up ambulating. No nausea and vomiting after eating. Tolerating p.o. Lochia normal. She is pumping without complaints. Ambulating and voiding without difficulty. - Physical Exam Vitals/I&O's: Vital Signs Temp Pulse Resp BP Pulse Ox 97.6 F L 75 18 130/76 H 95 04/05/20 07:45 04/05/20 07:45 04/05/20 07:45 04/05/20 07:45 04/04/20 13:46 Oxygen Delivery Method Room Air Weight: 169 lb 2 oz Body Mass Index (BMI) 27.3 Intake and Output for Last 24 Hours 04/03/20 04/04/20 04/05/20 23:59 23:59 23:59 Output Total 300 / 300 Balance -300 / -300 General: Alert, No apparent distress HEENT: Atraumatic Abdomen: Soft, Non Tender, Non-Distended, - - FF@U-2, incision c/d/i Extremities: No edema, No Calf Tenderness Skin: No rashes Neurological: Neuro grossly intact Psych/Mental Status: Normal Affect, Appropriate Laboratory Results 04/04/20 20:35: WBC 11.5 H, RBC 3.83 L, Hgb 11.8 L, Hct 35.7 L, MCV 93.2, MCH 30.8, MCHC 33.1, RDW Std Deviation 42.4, RDW Coeff of Dana 12.4, Plt Count 228, MPV 10.6 04/04/20 20:35: Sodium 140, Potassium 3.8, Chloride 108 H, Carbon Dioxide 25.0, Anion Gap 7, BUN 13, Creatinine 0.66, Estim Creat Clear Calc 117.74, Est GFR (MDRD) Af Amer 135, Est GFR (MDRD) Non-Af 112, BUN/Creatinine Ratio 19.7, Glucose 88, Calcium 8.8, Total Bilirubin 0.40, AST 35, ALT 31, Alkaline Phosphatase 169 H, Total Protein 6.7, Albumin 2.5 L, Globulin 4.2, Albumin/Globulin Ratio 0.6 L 04/04/20 20:35: Amylase 48, Lipase 90 Current Medications Acetaminophen (Tylenol) 1,000 mg PO Q6H [facility] Last Admin: 04/05/20 05:17 Dose: 1,000 mg Documented by: Al Hydroxide/Mg Hydroxide (Mylanta Ii) 30 ml PO Q6H PRN PRN PRN Reason: dyspepsia Last Admin: 04/02/20 19:01 Dose: 30 ml Documented by: Bisacodyl (Dulcolax) 10 mg RECTAL UD PRN PRN Reason: If no BM Enoxaparin Sodium (Lovenox) 40 mg SC DAILY [facility] Last Admin: 04/04/20 12:38 Dose: 40 mg Documented by: Hydralazine HCl (Apresoline Iv) 10 mg IV X1 PRN PRN Reason: Elevated BP Hydrocortisone (Hytone) 1 applic TOPICAL TID PRN PRN; Protocol PRN Reason: Discomfort Naloxone HCl 4 mg/ Dextrose 504 mls @ 0 mls/hr IV .Q0M PRN; Protocol PRN Reason: To maintain Resp. rate >10 Labetalol HCl (Trandate) 20 mg IV X1 PRN PRN Reason: Elevated BP Labetalol HCl (Trandate) 200 mg PO TID [facility] Last Admin: 04/05/20 05:41 Dose: 200 mg Documented by: Methylergonovine Maleate (Methergine) 0.2 mg IM X1 PRN PRN Reason: Uterine Atony Naloxone HCl (Narcan) 0.02 mg IV Q1M PRN PRN Reason: RR< 10 AND PT UNRESPONSIVE Naproxen (Naprosyn) 500 mg PO Q8H [facility] Last Admin: 04/05/20 05:16 Dose: 500 mg Documented by: Nifedipine (Procardia Xl) 30 mg PO DAILY [facility] Last Admin: 04/04/20 10:31 Dose: 30 mg Documented by: Nifedipine (Procardia) 20 mg PO X1 PRN PRN Reason: Elevated BP Nifedipine (Procardia) 20 mg PO X1 PRN PRN Reason: Elevated BP Ondansetron HCl (Zofran) 4 mg IV Q4H PRN PRN PRN Reason: Nausea Last Admin: 04/04/20 18:35 Dose: 4 mg Documented by: Oxycodone HCl (Oxyir) 5 - 10 mg PO Q4H PRN PRN PRN Reason: Pain Score 4-10/10 Prochlorperazine Edisylate (Compazine Iv) 10 mg IV Q6H PRN PRN PRN Reason: NAUSEA Last Admin: 04/04/20 21:34 Dose: 10 mg Documented by: Scopolamine HBr (Transderm-Scop) 1 patch TD Q3D [facility] Last Admin: 04/03/20 15:44 Dose: 1 applicatio Documented by: Senna/Docusate Sodium (Senokot-S, Barb-Colace) 0 tablet PO DAILY [facility] Last Admin: 04/04/20 09:09 Dose: Not Given Documented by: Sertraline HCl (Zoloft) 50 mg PO DAILY [facility] Last Admin: 04/03/20 19:39 Dose: 50 mg Documented by: Simethicone (Mylicon) 80 mg PO PCHS PRN PRN Reason: Indigestion/stomach pain Last Admin: 04/04/20 21:30 Dose: 80 mg Documented by: Sodium Chloride () 5 - 15 ml IV UD PRN PRN Reason: SALINE FLUSH Last Admin: 04/04/20 21:34 Dose: 10 ml Documented by: Medical Necessity - Tobacco Use Smoking Status: Never smoker Assessment/Plan All Active Problems Severe pre-eclampsia (Acute) Severe pre-eclampsia (Acute) Is postoperative day 5 after a section for preeclampsia with severe features. - Preeclampsia: BP's have been normal to mild range. Cont Labetalol at home. Instructed her to check BP's twice daily once discharged and keep a log. To call if BP's 160/110 or greater. To come into the office in 2 days before the weekend for BP check. Labs yesterday WNL. No pre e symptoms - N/V: Pt tolerating PO. Possible secondary to constipation, although motion does precipitate the symptoms. Cont stool softener and Zofran PRN. Discussed if persistent needs to follow up with PCP for another opinion and possible RUQ US? - Post-op: Doing well. Meeting milestones for discharge - Dispo: D/c home today
--- NOTE | 2020-04-05 08:45 | DCINST_ITS ---
Discharge Diet: No Restrictions Discharge Activity: May Not Drive, May Shower May resume sexual activity in: 6 weeks Ice area for (Minutes): 15 Weight Bearing Status: Weight bearing as tolerated Lifting Restrictions: Nothing heavier than baby Call your doctor if your incision/area has: Sudden Increased Bleeding, Increased Pain/ Swelling, Increased Redness, Foul Smelling Discharge, Swelling at the incision site Call your doctor if you observe: Fever of 101 or Higher, Inability to urinate, Inability to have a bowel movement, Using more than one pad per hour, Shortness of breath, Dizziness, Fainting spells, Swelling in the ankles, Chest pain, Increased palpitations (irregular heartbeat), Calf discomfort, Uncontrolled pain Suture Line Care: Avoid Pulling/Pushing, Avoid Pinching/Bending Cleanse incision/area with: Soap & Water Additional Instructions: If you experience any of the following, contact your healthcare provider. * Bleeding that soaks a pad every hour for 2 hours * Fever 100.4 or higher * Unrelieved incision or abdominal pain * Swelling, redness, discharge or bleeding from your incision or episiotomy site * Your incision begins to separate * Problems urinating (including inability to urinate or burning while urinating). * Visual changes * Severe headache * Flu-like symptoms * Pain or redness in one of both of your breasts * Pain, warmth, tenderness or swelling in your legs, especially the calf area * Frequent nausea and vomiting * Symptoms of depression or anxiety If you experience any of the following, call 911 or go to the nearest Emergency Room. * Chest pain * Problems breathing * Seizure activity * Partial or complete paralysis of a body part, slurred speech, weakness or drooping of the face, or a sudden inability to walk or hold your balance Allergies/Adverse Reactions: Allergies No Known Allergies Allergy (Verified 03/08/20 15:39) Medications to take at Discharge Albuterol Inhaler 1 puff PRN PRN 08/07/16 Aspirin [Aspirin, Baby] 81 mg PO DAILY@0800 02/21/20 Ferrous Sulfate [Iron] 325 mg PO DAILY 02/21/20 Vits [Prenatabs FA ] 1 tab PO DAILY 02/21/20 Sertraline HCl [Zoloft] 50 mg PO DAILY 02/21/20 Labetalol [Trandate (Beta Earl)] 100 mg PO BID #60 tab 03/08/20 Docusate Sodium [Colace] 100 mg PO BID #60 cap 04/05/20 Ibuprofen [Motrin] 800 mg PO TID PRN PRN #60 tab 04/05/20 Labetalol [Trandate (Beta Earl)] 200 mg PO TID #90 tab 04/05/20 Ondansetron HCl [Zofran] 4 mg PO Q8H PRN PRN #30 tab 04/05/20 Oxycodone HCl/Acetaminophen [Percocet 5/325] 1 tablet PO Q6H PRN PRN 7 Days #10 tablet 04/05/20 The following prescriptions were given: Docusate Sodium [Colace] 100 mg PO BID #60 cap Transmission Status: Pending to [facility] Ibuprofen [Motrin] 800 mg PO TID PRN PRN #60 tab PRN Reason: Pain Score 4-10/10 Transmission Status: Pending to [facility] Oxycodone HCl/Acetaminophen [Percocet 5/325] 1 tablet PO Q6H PRN PRN 7 Days #10 tablet PRN Reason: Pain Score 6-10/10 Transmission Status: Sent to [facility] Labetalol [Trandate (Beta Earl)] 200 mg PO TID #90 tab Transmission Status: Pending to [facility] Ondansetron HCl [Zofran] 4 mg PO Q8H PRN PRN #30 tab PRN Reason: Nausea/Vomiting Transmission Status: Pending to [facility] Follow-Up: Call to make an appointment with your doctor for an incision check in 1-2 weeks. You will also need a 6 week post- follow up appointment. Test results from this visit will be discussed in further detail at your follow- up appointment, if applicable. When: Saturday 04/07 for blood pressure check Primary Care Physician: Care Physician,No Primary [Primary Care Provider] -
--- NOTE | 2020-04-05 08:47 | PCM.DC.SUM ---
Discharge Date and Diagnosis Date of Admission: 03/31/20 Date of Discharge: 04/05/20 Hospital Course and Treatment Operations: - - section Summary of Care Provided: The patient is a 29 year old F who was admitted for delivery at 34 weeks gestation with di-di-twins for preeclampsia with severe features. Both baby a and B were in breech presentation the patient has a history of a prior . She had a repeat section for preeclampsia with severe features on March [id number]. See operative report for details. On magnesium for delivery in 24 hours . Postoperatively her blood pressures were elevated and pressures were then controlled on labetalol 200 mg 3 times a day. Discharged home on postoperative day 5 with good control of her blood pressures, normal preeclampsia labs, no symptoms of preeclampsia. Pain was controlled, she was ambulating voiding without difficulty, she was tolerating a diet. She was instructed to follow-up in 2 days for a blood pressure check in the office. - Physical Exam Vitals/I&O's: Vital Signs Temp Pulse Resp BP Pulse Ox 97.6 F L 75 18 130/76 H 95 04/05/20 07:45 04/05/20 07:45 04/05/20 07:45 04/05/20 07:45 04/04/20 13:46 Oxygen Delivery Method Room Air Weight: 169 lb 2 oz Body Mass Index (BMI) 27.3 Intake and Output for Last 24 Hours 04/03/20 04/04/20 04/05/20 23:59 23:59 23:59 Output Total 300 / 300 Balance -300 / -300 Laboratory Results 04/04/20 20:35: WBC 11.5 H, RBC 3.83 L, Hgb 11.8 L, Hct 35.7 L, MCV 93.2, MCH 30.8, MCHC 33.1, RDW Std Deviation 42.4, RDW Coeff of Dana 12.4, Plt Count 228, MPV 10.6 04/04/20 20:35: Sodium 140, Potassium 3.8, Chloride 108 H, Carbon Dioxide 25.0, Anion Gap 7, BUN 13, Creatinine 0.66, Estim Creat Clear Calc 117.74, Est GFR (MDRD) Af Amer 135, Est GFR (MDRD) Non-Af 112, BUN/Creatinine Ratio 19.7, Glucose 88, Calcium 8.8, Total Bilirubin 0.40, AST 35, ALT 31, Alkaline Phosphatase 169 H, Total Protein 6.7, Albumin 2.5 L, Globulin 4.2, Albumin/Globulin Ratio 0.6 L 04/04/20 20:35: Amylase 48, Lipase 90 Current Medications Acetaminophen (Tylenol) 1,000 mg PO Q6H [facility] Last Admin: 04/05/20 05:17 Dose: 1,000 mg Documented by: Al Hydroxide/Mg Hydroxide (Mylanta Ii) 30 ml PO Q6H PRN PRN PRN Reason: dyspepsia Last Admin: 04/02/20 19:01 Dose: 30 ml Documented by: Bisacodyl (Dulcolax) 10 mg RECTAL UD PRN PRN Reason: If no BM Enoxaparin Sodium (Lovenox) 40 mg SC DAILY [facility] Last Admin: 04/04/20 12:38 Dose: 40 mg Documented by: Hydralazine HCl (Apresoline Iv) 10 mg IV X1 PRN PRN Reason: Elevated BP Hydrocortisone (Hytone) 1 applic TOPICAL TID PRN PRN; Protocol PRN Reason: Discomfort Naloxone HCl 4 mg/ Dextrose 504 mls @ 0 mls/hr IV .Q0M PRN; Protocol PRN Reason: To maintain Resp. rate >10 Labetalol HCl (Trandate) 20 mg IV X1 PRN PRN Reason: Elevated BP Labetalol HCl (Trandate) 200 mg PO TID [facility] Last Admin: 04/05/20 05:41 Dose: 200 mg Documented by: Methylergonovine Maleate (Methergine) 0.2 mg IM X1 PRN PRN Reason: Uterine Atony Naloxone HCl (Narcan) 0.02 mg IV Q1M PRN PRN Reason: RR< 10 AND PT UNRESPONSIVE Naproxen (Naprosyn) 500 mg PO Q8H [facility] Last Admin: 04/05/20 05:16 Dose: 500 mg Documented by: Nifedipine (Procardia Xl) 30 mg PO DAILY [facility] Last Admin: 04/04/20 10:31 Dose: 30 mg Documented by: Nifedipine (Procardia) 20 mg PO X1 PRN PRN Reason: Elevated BP Nifedipine (Procardia) 20 mg PO X1 PRN PRN Reason: Elevated BP Ondansetron HCl (Zofran) 4 mg IV Q4H PRN PRN PRN Reason: Nausea Last Admin: 04/04/20 18:35 Dose: 4 mg Documented by: Oxycodone HCl (Oxyir) 5 - 10 mg PO Q4H PRN PRN PRN Reason: Pain Score 4-10/10 Prochlorperazine Edisylate (Compazine Iv) 10 mg IV Q6H PRN PRN PRN Reason: NAUSEA Last Admin: 04/04/20 21:34 Dose: 10 mg Documented by: Scopolamine HBr (Transderm-Scop) 1 patch TD Q3D [facility] Last Admin: 04/03/20 15:44 Dose: 1 applicatio Documented by: Senna/Docusate Sodium (Senokot-S, Barb-Colace) 0 tablet PO DAILY [facility] Last Admin: 04/04/20 09:09 Dose: Not Given Documented by: Sertraline HCl (Zoloft) 50 mg PO DAILY [facility] Last Admin: 04/03/20 19:39 Dose: 50 mg Documented by: Simethicone (Mylicon) 80 mg PO HS PRN PRN Reason: Indigestion/stomach pain Last Admin: 04/04/20 21:30 Dose: 80 mg Documented by: Sodium Chloride () 5 - 15 ml IV UD PRN PRN Reason: SALINE FLUSH Last Admin: 04/04/20 21:34 Dose: 10 ml Documented by: Discharge Diet: No Restrictions Discharge Activity: May Not Drive, May Shower May resume sexual activity in: 6 weeks Ice area for (Minutes): 15 Weight Bearing Status: Weight bearing as tolerated Call your doctor if your incision/area has: Sudden Increased Bleeding, Increased Pain/ Swelling, Increased Redness, Foul Smelling Discharge, Swelling at the incision site Call your doctor if you observe: Fever of 101 or Higher, Inability to urinate, Inability to have a bowel movement, Using more than one pad per hour, Shortness of breath, Dizziness, Fainting spells, Swelling in the ankles, Chest pain, Increased palpitations (irregular heartbeat), Calf discomfort, Uncontrolled pain Suture Line Care: Avoid Pulling/Pushing, Avoid Pinching/Bending Cleanse incision/area with: Soap & Water Home Medications: Medications to take at Discharge Albuterol Inhaler 1 puff PRN PRN 08/07/16 Aspirin [Aspirin, Baby] 81 mg PO DAILY@0800 02/21/20 Ferrous Sulfate [Iron] 325 mg PO DAILY 02/21/20 Vits [Prenatabs FA ] 1 tab PO DAILY 02/21/20 Sertraline HCl [Zoloft] 50 mg PO DAILY 02/21/20 Labetalol [Trandate (Beta Earl)] 100 mg PO BID #60 tab 03/08/20 Docusate Sodium [Colace] 100 mg PO BID #60 cap 04/05/20 Ibuprofen [Motrin] 800 mg PO TID PRN PRN #60 tab 04/05/20 Labetalol [Trandate (Beta Earl)] 200 mg PO TID #90 tab 04/05/20 Ondansetron HCl [Zofran] 4 mg PO Q8H PRN PRN #30 tab 04/05/20 Oxycodone HCl/Acetaminophen [Percocet 5/325] 1 tablet PO Q6H PRN PRN 7 Days #10 tablet 04/05/20 Following Prescriptions Were Given to Patient: Docusate Sodium [Colace] 100 mg PO BID #60 cap Transmission Status: Pending to [facility] Ibuprofen [Motrin] 800 mg PO TID PRN PRN #60 tab PRN Reason: Pain Score 4-10/10 Transmission Status: Pending to [facility] Oxycodone HCl/Acetaminophen [Percocet 5/325] 1 tablet PO Q6H PRN PRN 7 Days #10 tablet PRN Reason: Pain Score 6-10/10 Transmission Status: Sent to [facility] Labetalol [Trandate (Beta Earl)] 200 mg PO TID #90 tab Transmission Status: Pending to [facility] Ondansetron HCl [Zofran] 4 mg PO Q8H PRN PRN #30 tab PRN Reason: Nausea/Vomiting Transmission Status: Pending to [facility] Primary Care Physician: Care Physician,No Primary [Primary Care Provider] - When: Saturday 04/07 for blood pressure check Medical Necessity - Tobacco Use Smoking Status: Never smoker Meaningful Use Info Meaningful Use Diagnoses (Choose all that apply): None applicable
[2020-04-05 08:51] VITALS: BP 126/88; PULSE 69; RESP 12; TEMP 36.8; O2SAT 96
[2020-04-05] MEDS: Senna/Docusate Sodium 1 Tablet PO (10:04)
[2020-04-05] MEDS: NIFEdipine 30 MG Tablet PO (10:05)
[2020-04-05] MEDS: Enoxaparin 40 MG/0.4 ML Syringe SC (10:05)
[2020-04-05] MEDS: Sertraline 50 MG Tablet PO (10:05)
[2020-04-05 12:50] VITALS: BP 126/85; PULSE 69; RESP 16; TEMP 36.6; O2SAT 97
== END 2020-04-05 13:10 | disposition home or self-care (01) | DRG 788 ==
LOC: WPOUT 12:23 → WP 12:23
PROVIDERS: Obstetrics & Gynecology; Admitting Provider Obstetrics & Gynecology; Referring Provider Obstetrics & Gynecology; Visit Provider Obstetrics & Gynecology
DX: O14.14 Severe pre-eclampsia complicating childbirth (principal); O32.1XX1 Maternal care for breech presentation, fetus 1; O32.8XX2 Maternal care for other malpresentation of fetus, fetus 2; O34.211 Maternal care for low transverse scar from previous cesarean delivery; O30.043 Twin pregnancy, dichorionic/diamniotic, third trimester; O77.0 Labor and delivery complicated by meconium in amniotic fluid; O69.81X0 Labor and delivery complicated by cord around neck, without compression, not applicable or unspecified; O99.52 Diseases of the respiratory system complicating childbirth; J45.909 Unspecified asthma, uncomplicated; Z79.82 Long term (current) use of aspirin; Z79.51 Long term (current) use of inhaled steroids; Z79.899 Other long term (current) drug therapy; Z3A.34 34 weeks gestation of pregnancy; Z37.2 Twins, both liveborn
CPT/HCPCS: 59025; 59050; 80053; 82150; 82565; 82570; 83690; 84156; 84450; 84460; 84550; 85025; 85027; 85384; 85610; 85730; 86850; 86900; 86901; 99218; J7120; A4216; G0378; J0702; J2405